=== PATIENT | female | born 1960 | race Caucasian/White ===

== ENCOUNTER 2019-02-03 12:15 | Inpatient (IN) | payer BC, SELFPAY ==
[2019-02-03] VITALS (8 sets, daily range): BP systolic 88–138; BP diastolic 51–78; PULSE 47–68; RESP 16–26; TEMP 36.5–37.2; O2SAT 93–100
[2019-02-03 12:47] LABS: Bilirubin Negative (Negative); Blood Trace-intact (Negative); Clarity Clear (Clear); Glucose Negative (Negative); Ketones Negative (Negative); Leukocyte Esterase Trace (Negative); Nitrite Negative (Negative); Urobilinogen 0.2 EU/dL (Up TO 0.2)
[2019-02-03 12:58] LABS: Epithelial Cells Rare HPF (Negative); Other Cells Few Renal (Negative); RBC 0-2 HPF (0-2)
[2019-02-03 12:59] LABS: Bacteria Rare HPF (Negative); C & S Indicated? Yes; Casts Negative LPF (Negative); Crystals Negative HPF (Negative); Mucus Negative (Negative)
[2019-02-03 12:59] LABS: Abs Immature Grans 0.02 k/cumm (0.0-0.09); Absolute Basophil Count 0.02 k/cumm (0.0-0.2); Absolute Lymphocyte Count 1.67 k/cumm (1.2-3.4); Absolute Monocyte Count 0.86 k/cumm (0.11-0.7); Absolute Neutrophil Count 7.27 k/cumm (1.2-6.7); Basophils % 0.2; HCT 43.5 % (36.0-46.0); HGB 14.9 g/dL (12.0-15.5); Immature Grans % 0.2; Lymphocytes % 16.8; Mean Corp. HGB Concentration 34.3 g/dL (32.0-36.0); Mean Corpuscular Volume 90.6 fL (80-95); Mean Platelet Volume 8.7 fL (8.0-11.0); Monocytes % 8.7; Neutrophils % 73.1; Platelet Count 274 x1000/uL (130-400); RBC Distribution Width 12.6 % (11.7-14.6); White Blood Cell Count 9.94 k/cumm (4.4-10.8)
[2019-02-03 13:09] LABS: ALT 51 U/L (14-59); AST 32 U/L (15-37); Alkaline Phosphatase 95 U/L (46-116); Anion Gap 8.1 mmol/L (3-11); BUN 18 mg/dL (7-18); CO2 29.9 mmol/L (21.0-32.0); CREATININE 0.75 mg/dL (0.55-1.02); Calcium 9.1 mg/dL (8.5-10.1); Chloride 104 mmol/L (98-107); Glucose 98 mg/dL (74-106); Magnesium 2.1 mg/dL (1.8-2.4); Sodium 142 mmol/L (136-145); Total Protein 7.7 g/dL (6.4-8.2)
[2019-02-03] MEDS: Ondansetron 4 MG/2 ML VIAL IVP ×2 (13:30→15:29)
[2019-02-03] MEDS: Omnipaque 350 MG/ML 100 ML BTL IJ (14:05)
--- NOTE | 2019-02-03 14:05 | DI.CT_ITS ---
EXAM: CT ABDOMEN AND PELVIS W CLINICAL HISTORY: RLQ PAIN X 2 DAYS TECHNIQUE: CT examination of the abdomen and pelvis was performed with a bolus infusion of 100 cc of Omnipaque 350. COMPARISON: No exams were available for comparison FINDINGS: Images obtained through the lung bases are unremarkable. There are a couple of tiny low-attenuation hepatic lesions too small to characterize. There is an approximately 3.5 cm in greatest diameter rig ht lobe hepatic lesion with some associated enhancement, pattern is nonspecific and while this may re present a hemangioma, other etiologies including neoplastic process are not excluded. Multiphasic he patic CT or hepatic MRI suggested for further evaluation. Spleen is unremarkable. Pancreas appears normal. Adrenals and kidneys appear normal. No urinary tr act calcification or obstruction. Abdominal aorta is of normal diameter and no major vascular abnorm ality is seen. No abdominal wall hernia is seen. No abdominal or pelvic adenopathy. Uterus is enlarged and contains rounded enhancing lesions consistent with uterine fibroid, the larges t measuring about 4 cm in diameter and the smaller about 1.7 cm in diameter. No free fluid identifie d in the cul-de-sac. Appendix is thick-walled and dilated with surrounding fat edema and a proximal appendicolith. Findin gs highly suggestive of acute appendicitis. No other focal bowel pathology identified. IMPRESSION: Findings consistent with acute appendicitis. Indeterminate right lobe hepatic lesion, additional evaluation with multiphasic hepatic CT or hepatic MRI recommended as described above.
--- NOTE | 2019-02-03 14:49 | ED.GENADUL_ITS ---
Discharge Plan Disposition Patient Disposition: [facility] INPATIENT Condition: Good Discharge Details Chief Complaint: Abd Prob Clinical Impression: Acute appendicitis Admit Date/Time: 02/03/19 16:47 Admit Provider: Rosemary Lewis Attending Provider: Rosemary Lewis Primary Care Provider: Sam Poole ED Provider: Komal Darnell Discharge Data Discharge Date/Time-TO BE ENTERED AT DEPARTURE: 02/03/19 15:50 Medical Decision Making Is a 58-year-old patient presenting for complaints of abdominal pain which began yesterday. Patient did have some difficulty sleeping initially due to persistence of pain into the evening but finally was able to fall asleep. Patient did report associated nausea which began yesterday, persists today. Patient reports mild anorexia today. Abdominal pain is constant and persistent which prompted her evaluation to the emergency room at this time. Patient denies associated bowel changes. Denies fevers or chills. Patient denies any recent upper respiratory symptoms. On exam patient has focal right lower quadrant tenderness with no associated peritoneal signs. No significant CVA tenderness. At this time labs as well as urinalysis ordered and CT of abdomen ordered. Patient declines pain medication at this time. IV placed. CT reveals acute appendicitis [id number] -spoke with Dr. Lewis regarding positive acute appendicitis. She will evaluate the patient. HPI General Date/Time Provider Initiated Documentation: 02/03/19 13:30 . HPI Narrative: This is a 58-year-old patient presenting to the emergency room complaints of abdominal pain. Patient reports onset of abdominal pain yesterday gradually. Patient does report nausea yesterday which persists today. Patient does report difficulty sleeping last night due to discomfort. She was eventually able to sleep. Patient presents to the emergency room as her pain did persist throughout the day today. She reports primarily right-sided abdominal pain. Nausea persists as well as mild anorexia. Minimal p.o. intake today. Patient denies associated bowel changes. Denies measured fevers or chills. No other concerns or complaints. Patient does report mild right-sided back pain. Denies urinary urgency, frequency or dysuria. Denies history of similar. No other flulike symptoms noted. Denies sore throat. Related Data Home Medications Medication Instructions Recorded Confirmed ascorbic acid (vitamin C) [Vitamin 1,000 mg PO DAILY 02/03/19 02/03/19 C] ibuprofen 600 mg PO Q6H PRN #90 tab 02/03/19 magnesium See Rx Instructions .ROUTE .COMPLEX 02/03/19 02/03/19 omega 4-hds-ljh-fish oil [Fish Oil] 1 cap PO DAILY 02/03/19 02/03/19 tramadol 50 mg PO Q4H PRN #14 tab 02/03/19 Previous Rx's Medication Instructions Recorded ibuprofen 600 mg PO Q6H PRN #90 tab 02/03/19 tramadol 50 mg PO Q4H PRN #14 tab 02/03/19 Allergies Allergy/AdvReac Type Severity Reaction Status Date / Time diazepam [From Valium] Allergy Intermediate Skin Rash Unverified 02/03/19 12:30 General Stated Complaint: Abd Prob JULISSA: 3 Review of Systems All systems reviewed & are unremarkable except as noted in HPI and below Constitutional Constitutional: Denies chills, Denies fatigue, Denies fever(s), Denies headache(s) and Denies malaise ENT Ears, Nose, Mouth, and Throat: Denies otalgia, Denies headache(s), Denies nasal congestion and Denies sore throat Gastrointestinal Gastrointestinal: Reports abdominal pain, Denies diarrhea, Reports nausea and Denies vomiting Genitourinary Genitourinary: Denies dysuria Neurologic Neurologic: Denies headache(s) Endocrine Endocrine: Denies fatigue PFSH Medical History Acute appendicitis (Acute) Eroded bladder suspension mesh (Acute) PONV (postoperative nausea and vomiting) (Acute) Surgical History Knee joint replacement status (Acute) Exam Narrative Exam Narrative: CONST: Healthy appearing patient, in no acute distress. Well hydrated. Alert and alert. HENMT: Head nomocephalic, normal to inspection. Atraumatic. Hearing grossly normal. TMs appear normal bilaterally. No pharyngeal erythema. EYES: General normal appearance. Alignment normal. Eyelids normal. Conjunctiva normal. NECK: Normal visual inspection. FROM. Trachea midline. No Midline tenderness. CHEST: Normal insepection of the chest. RESP: Normal respiratory effort. Speaking full sentences. No cough. No audible wheezing. No retractions. CARDIO: No JVD. No murmurs. Regular rate and rhythm Back: No CVA tenderness bilaterally GI: Bowel sounds are present in all 4 quadrants. Abdomen is soft. Focal right lower quadrant tenderness with palpation. No peritoneal signs, rebound or guarding. PSYCH: Normal affect. Cooperative. Course Vital Signs Vital signs: Vital Signs Temperature 36.5 C 02/03/19 12:28 Pulse 68 02/03/19 12:28 Respiratory Rate 16 02/03/19 12:28 Blood Pressure 138/78 02/03/19 12:28 Pulse Oximetry 100 02/03/19 12:28 Temperature 36.5 C 02/03/19 12:28 Temperature Source Skin 02/03/19 12:28 Pulse 68 02/03/19 12:28 Respiratory Rate 16 02/03/19 12:28 Blood Pressure 138/78 02/03/19 12:28 Pulse Oximetry 100 02/03/19 12:28 Oxygen Delivery Method Room Air 02/03/19 12:28 Oxygen Flow Rate 0 02/03/19 12:28 Pain Level 7 02/03/19 12:28 Lab/Test Results Lab/Test Results: 02/03/19 12:30 Urine - Reflex from Ua Urine Culture - Pending Laboratory Tests Range/Units 02/03/19 02/03/19 02/03/19 12:27 12:27 12:30 WBC (4.4-10.8) k/cumm 9.94 RBC (4.00-5.20) m/cumm 4.80 Hgb (12.0-15.5) g/dL 14.9 Hct (36.0-46.0) % 43.5 MCV (80-95) fL 90.6 MCH (27.0-33.0) pg 31.0 MCHC (32.0-36.0) g/dL 34.3 RDW (11.7-14.6) % 12.6 Plt Count (130-400) x1000/uL 274 MPV (8.0-11.0) fL 8.7 Immature Gran % 0.2 Neutrophils % 73.1 Lymphocytes % 16.8 Monocytes % 8.7 Eosinophils % 1.0 Basophils % 0.2 Absolute Neutrophils (1.2-6.7) k/cumm 7.27 H Absolute Lymphocytes (1.2-3.4) k/cumm 1.67 Absolute Monocytes (0.11-0.7) k/cumm 0.86 H Absolute Eosinophils (0.0-0.7) k/cumm 0.10 Absolute Basophils (0.0-0.2) k/cumm 0.02 Sodium (136-145) mmol/L 142 Potassium (3.5-5.1) mmol/L 4.0 Chloride (98-107) mmol/L 104 Carbon Dioxide (21.0-32.0) mmol/L 29.9 Anion Gap (3-11) mmol/L 8.1 BUN (7-18) mg/dL 18 Creatinine (0.55-1.02) mg/dL 0.75 Estimated GFR/1.73 m2 (mL/min/1.73m2) >= 60.00 Glucose (74-106) mg/dL 98 Calcium (8.5-10.1) mg/dL 9.1 Magnesium (1.8-2.4) mg/dL 2.1 Total Bilirubin (0.2-1.0) mg/dL 1.0 AST (15-37) U/L 32 ALT (14-59) U/L 51 Alkaline Phosphatase (46-116) U/L 95 Total Protein (6.4-8.2) g/dL 7.7 Albumin (3.4-5.0) g/dL 4.0 Urine Color (Yellow) Yellow Urine Clarity (Clear) Clear Urine pH (5-8) 7.0 Ur Specific [place] (1.005-1.025) 1.010 Urine Protein (Negative) mg/dL Negative Urine Ketones (Negative) mg/dL Negative Urine Blood (Negative) Trace-intact H Urine Nitrite (Negative) Negative Urine Bilirubin (Negative) Negative Urine Urobilinogen (Up TO 0.2) EU/dL 0.2 Ur Leukocyte Esterase (Negative) Trace H Urine RBC (0-2) HPF 0-2 Urine WBC (0-5) HPF 3-5 Ur Epithelial Cells (Negative) HPF Rare Urine Crystals (Negative) HPF Negative Urine Bacteria (Negative) HPF Rare Urine Casts (Negative) LPF Negative Urine Mucus (Negative) Negative Urine Other (Negative) Few renal Ur Culture Indicated? Yes Urine Glucose (Negative) mg/dL Negative
--- NOTE | 2019-02-03 14:51 | W.PM.HP.N ---
Date of service: 02/03/19 Time of Service: 14:52 Assessment and Plan Assessment and plan (1) Acute appendicitis: Status: Acute Assessment and plan: Informed consent is obtained for the procedural (explained in simple layman's terms that the pt and/or family could understand) explaining risks vs benefits and alternatives to the procedure and consequences if we do not do the procedure. Risks include but are not limited to:bleeding,infections, pneumonia, blood clots/DVT/PE, anesthesia(aspiration, damage to teeth/airway/OR/CVA//prolonged mechanical ventilation/PTX/IV infections), damage to bowel, bladder,blood vessels, ureters, bile ducts. Damage to solid organs requiring removal. Leakage from anastomosis requiring colostomy/ Wound infections requirng further surgery.Scarring and disfigurement. Subsequent bowel obstructions from scar tissue. Possible open procedure if minimally invasive procedure is being attempted laprascopic appendectomy possible liver bx if the lesion is vision and of questionable nature will see how pt does postOp poss d/c home tonight vs in am (2) PONV (postoperative nausea and vomiting): Status: Acute History of Present Illness Consults Consult date: 02/03/19 Narrative: Pt started having vague abdominal pain yesterday. denies any trauma/travel/unusual foods/activities. She has no hx of chronic GI problems. She moved her bowels x2 today and nl for her. no blood or diarrhea. She has persistent RLQ pain and nausea. She is not one to vomit. feels clammy. no appetite. She has had mult knee scopes and surgies- has PONV. No CAD/HTN/DM non smoker Review of Systems All systems reviewed & are unremarkable except as noted in HPI and below PFSH Medical History Acute appendicitis (Acute) Eroded bladder suspension mesh (Acute) PONV (postoperative nausea and vomiting) (Acute) Surgical History Knee joint replacement status (Acute) Meds Home Medications and Allergies Home Medications Medication Instructions Recorded Confirmed Type ascorbic acid (vitamin C) [Vitamin 1,000 mg PO DAILY 02/03/19 02/03/19 History C] magnesium See Rx Instructions .ROUTE .COMPLEX 02/03/19 02/03/19 History omega 9-ldr-xke-fish oil [Fish Oil] 1 cap PO DAILY 02/03/19 02/03/19 History Allergies Allergy/AdvReac Type Severity Reaction Status Date / Time diazepam [From Valium] Allergy Intermediate Skin Rash Unverified 02/03/19 12:30 Exam Const General: cooperative, healthy appearing, comfortable, no acute distress, well developed and well groomed Nutritional Appearance: average body habitus and well nourished Orientation: alert, awake and oriented x3 HENMT Head: normal to inspection, normocephalic and atraumatic Ears: hearing grossly normal bilaterally and external ears normal General nose exam: external nose normal Face and sinus: normal facial exam and sinuses nontender Mouth: oral mucosae normal, lip normal, tongue normal and moist mucous membranes Teeth and gingiva: dentition normal Eyes General: appearance normal, both eyes and all related structures Conjunctivae: conjunctivae normal Sclera: sclerae normal Pupils: PERRL Neck Neck: normal visual inspection and full ROM Chest Chest: normal inspection of the chest Resp Effort & Inspection: normal respiratory effort, able to speak in complete sentences, no cough, no nasal flaring, not tachypneic and no use of accessory muscles Auscultation: clear to auscultation bilaterally, no rales, no rhonchi and no wheezes Cardio Jugular venous pressure: no JVD Rate: regular rate Rhythm: regular rhythm GI Inspection: normal to inspection, no edema, non-distended and other (no hernias) Palpation: soft, guarding, no masses, tender at McBurney's point and with rebound tenderness; obturator sign negative and Rovsing's sign negative and No ascites Percussion: normal to percussion Auscultation: normal bowel sounds and hypoactive bowel sounds Skin General skin exam: no rashes or lesions noted Trauma: no lacerations or abrasions Neuro General: alert, oriented x3, oriented, gait normal, moves all extremities, no focal motor deficits and CN's II-XI intact bilaterally Cognition: normal cognition Speech: speech normal Gait: normal gait Motor: muscle tone normal throughout Extrem General: normal to inspection, full ROM and no clubbing, cyanosis or edema Psych Appearance: grossly normal and well kempt Mental Status: mental status grossly normal Speech and Movement: speech and movement normal Affect: normal affect Results Labs Result diagrams: 02/03/19 12:27 02/03/19 12:27 Labs: Laboratory Results - last 24 hr 02/03/19 02/03/19 02/03/19 12:27 12:27 12:30 WBC 9.94 RBC 4.80 Hgb 14.9 Hct 43.5 MCV 90.6 MCH 31.0 MCHC 34.3 RDW 12.6 Plt Count 274 MPV 8.7 Immature Gran % 0.2 Neutrophils % 73.1 Lymphocytes % 16.8 Monocytes % 8.7 Eosinophils % 1.0 Basophils % 0.2 Absolute Neutrophils 7.27 H Absolute Lymphocytes 1.67 Absolute Monocytes 0.86 H Absolute Eosinophils 0.10 Absolute Basophils 0.02 Sodium 142 Potassium 4.0 Chloride 104 Carbon Dioxide 29.9 Anion Gap 8.1 BUN 18 Creatinine 0.75 Estimated GFR/1.73 m2 >= 60.00 Glucose 98 Calcium 9.1 Magnesium 2.1 Total Bilirubin 1.0 AST 32 ALT 51 Alkaline Phosphatase 95 Total Protein 7.7 Albumin 4.0 Urine Color Yellow Urine Clarity Clear Urine pH 7.0 Ur Specific [place] 1.010 Urine Protein Negative Urine Ketones Negative Urine Blood Trace-intact H Urine Nitrite Negative Urine Bilirubin Negative Urine Urobilinogen 0.2 Ur Leukocyte Esterase Trace H Urine RBC 0-2 Urine WBC 3-5 Ur Epithelial Cells Rare Urine Crystals Negative Urine Bacteria Rare Urine Casts Negative Urine Mucus Negative Urine Other Few renal Ur Culture Indicated? Yes Urine Glucose Negative Last Vital Signs Temp 36.5 C 02/03/19 12:28 Pulse 68 02/03/19 12:28 Resp 16 02/03/19 12:28 BP 138/78 02/03/19 12:28 Pulse Ox 100 02/03/19 12:28
[2019-02-03 15:21] LABS: Prothrombin Time 9.8 sec (9.3-11.0)
[2019-02-03] MEDS: Lactated Ringers 1,000 ML 125 ML IV ×2 (15:27→16:28)
[2019-02-03] MEDS: PIPERACILLIN/TAZO 3.375 GM in Normal Saline 50 ML IVPB (15:28)
--- NOTE | 2019-02-03 16:37 | APP_PTH ---
PATIENT: Sabi Huff LOC: U#:[id number] AGE/SX: 58/F ROOM: [id number] RE02/03/[address]: Rosemary Lewis : 1960 BED: B DIS: 02/03/2019 SPEC #: [id number] RECD: 02/03/19 17:47 STATUS: SOUChad REQ #: [id number] [place]: 02/03/19 16:[address]: Rosemary Lewis DEPT: Surgical Specimen RECD BY: Kateryna Mcconnell ENTERED: 02/03/19 17:47 SP TYPE: Appendix OTHR DR: Sam Poole Tissues: 1 - APPENDIX NOT INCIDENTAL Procedures: GROSS AND MICRO LEVEL 3 Comments: [id number]
--- NOTE | 2019-02-03 16:50 | W.PM.OP ---
Date of service: 02/03/19 Time of Service: 16:50 Operative Note Operative Note DATE OF PROCEDURE: 02/03/19 PRE-OP DIAGNOSIS: acute appy POST-OP DIAGNOSIS: same PROCEDURE: lap appy SURGEON: Melinda Martinez VIDEO SURVEILLANCE TECHNICIAN: Casper Jansen ANESTHESIA: GETA ESTIMATED BLOOD LOSS: 5 PATHOLOGY: other COMPLICATIONS: None Patient was transported to: PACU Patient's condition: stable Procedure Description: COMPLICATIONS: The patient tolerated the procedure well without complications. INDICATIONS: The patient has signs and symptoms compatible with acute appendicitis and is brought to the OR for laparoscopic appendectomy, possible open procedure. Informed consent is obtained for the procedural (explained in simple layman's terms that the pt and/or family could understand) explaining risks vs benefits and alternatives to the procedure and consequences if we do not do the procedure. Risks include but are not limited to:bleeding,infections, pneumonia, blood clots/DVT/PE, anesthesia(aspiration, damage to teeth/airway/VT/CVA//prolonged mechanical ventilation/PTX/IV infections), damage to bowel, bladder,blood vessels, ureters. Damage to solid organs requiring removal. Infertility. Leakage from anastomosis requiring colostomy. Wound infections requirng further surgery. Scarring and disfigurement. Subsequent bowel obstructions from scar tissue. Possible open procedure if minimaly invsive procedure is being attempted. Abscess and stump appendicitis as well as others. DESCRIPTION OF PROCEDURE: The patient was brought to the operating room suite and placed in supine position. Anesthesia was administered per the Department of Anesthesia. A Zhu catheter and OG tube are placed. The patient was prepped and draped in the usual sterile fashion using ChloraPrep scrub solution. Pause for the cause was done. 30 mL of 1% buffered was used for local anesthetization. A stab incision was made in the umbilicus and the Veress was inserted. Drop test was positive and insufflation was begun. When 15 mm of pressure was noted on the monitor, the Veress was removed, a #5 port inserted. Camera inserted through the port shows no damage to underlying structures. Bowel, liver and stomach that are visualized are normal in appearance. Pelvic organs are not visualized. The appendix is inflamed, erythematous,enlarged, & distened, but does not appear to have been ruptured. There is no purulent drainage in the pelvis. It is not adhered to any adjacent structures. A 12 mm port was then placed in the suprapubic position under direct visualization following creation of a local field block as well as a second 5 mm port in the LLQ. The appendix is elevated and a rent dissected into the mesentery. The base of the appendix is healthy and will hold saul. A Endo-CINDY stapler is placed across the base of the appendix and fired and 2nd stapler placed across the mesentery and fired. The appendix is placed in a bag and brought out. There is no bleeding or enteric leakage from the staple lines. The pt does not require a drain. The abdomen was copiously irrigated with a liter of saline. All saline is evacuated. The scope and ports are removed. Pneumoperitoneum is evacuated. The fascia under the 12 mm port is closed with 0 Vicryl. There was no bleeding from the port sites as when they removed and the pneumoperitoneum evacuated. The wounds were copiously irrigated and closed in 2 layers with 4-0 Monocryl. Sterile tape and sterile dressings are applied. The patient tolerated the procedure without complication, transferred to the recovery room in stable condition. Family was apprised of patient condition. The patient can be discharged home later today. MELINDA MARTINEZ, DO
--- NOTE | 2019-02-03 17:20 | W.PM.DS.N ---
Date of service: 02/03/19 Time of Service: 17:20 DS: Diagnosis Discharge Diagnosis (1) Acute appendicitis: Status: Acute (2) PONV (postoperative nausea and vomiting): Status: Acute Discharge Plan Disposition Patient Disposition: HOME Condition: Good Discharge Details Chief Complaint: Abd Prob Clinical Impression: Acute appendicitis Reason For Visit: APPENDICITIS Attending Provider: Rosemary Lewis Primary Care Provider: Sam Poole ED Provider: Komal Darnell Home Meds and New Rx's Prescriptions: New tramadol 50 mg tablet 50 mg PO Q4H PRN (Reason: pain) Qty: 14 RF: 0 ibuprofen 600 mg tablet 600 mg PO Q6H PRN (Reason: pain) Qty: 90 RF: 2 Continued omega 4-jgp-vfv-fish oil [Fish Oil] 1,000 mg (120 mg-180 mg) Capsule 1 cap PO DAILY RF: 0 ascorbic acid (vitamin C) [Vitamin C] 1,000 mg Tablet 1,000 mg PO DAILY RF: 0 magnesium 250 mg Tablet See Rx Instructions .ROUTE .COMPLEX RF: 0 Discharge Instructions Additional Instructions: Keep an ice bag on the incision. 20 minutes on and 20 minutes off. Ice keeps the swelling down and swelling causes pain. Make sure you wrap the ice pack in a towel and don't apply directly to the skin. -No driving x 72hrs or of you are taking narcotic pain medications. -If you have saul or sutures in place, they will be removed at your clinic appointment in 7-10 days. -Follow-up with Dr. Lewis in 1 week. -soft diet: No beef/pork raw vegetables x1 -week. Cooked vegetables are fine -no straining to move bowels -pain meds are very constipating: if you do not move your bowels daily take a dose of OTC milk of magnesia -It is ok to shower, after the first 24 hrs. No bathe, soaking, swimming or hot tubs -Keep wound clean and dry. Wash incision with soap and water daily. Pat dry, don't rub. -You may find that your appetite is smaller. Eat 3-6 small meals throughout the day. It is important to drink lots of water after surgery, 6-10 glasses a day. -If you were given an incentive spirometry (\breathing intelligence operations), continue to do this 10x/hour while awake. -We do want you up walking, at least 5-6 times per day. This is very important to prevent pneumonia and blood clots. You can climb stairs, take them slowly. -No lifting over 5 pounds. This is very important to avoid developing a hernia in your incision. -You may find that you are very tired after surgery- this is normal. -please do not smoke for a minimum of 72 hours after surgery. Activity:: see above Shower/Bathe:: 24 hours Diet:: As Tolerated Discharge Orders Discharge Orders: Discharge Order (Routine); Ordered 02/03/19 Ordered By: Rosemary Lewis DS: Summary Status at Discharge Functional status at discharge: independent ambulation Overall status at discharge: patient is back to baseline Mental Status: mental status grossly normal Speech and Movement: speech and movement normal Mood: congruent mood Affect: normal affect Exam Psych Mental Status: mental status grossly normal Speech and Movement: speech and movement normal Mood: congruent mood Affect: normal affect DS: Data Vitals/I&O Vitals and I&O: Vital Signs Temperature 37.2 C 02/03/19 17:05 Temperature Source Skin 02/03/19 12:28 Pulse 47 L 02/03/19 17:05 Respiratory Rate 26 H 02/03/19 17:05 Blood Pressure 91/51 L 02/03/19 17:05 Pulse Oximetry 95 02/03/19 17:05 Oxygen Delivery Method Nasal Cannula 02/03/19 17:05 Oxygen Flow Rate 2 02/03/19 17:05 Pain Level 0 02/03/19 17:05 Intake & Output 02/02/19 02/03/19 02/03/19 23:59 11:59 23:59 Intake Total 181 / 1810 Output Total 200 / 200 Balance 1610 / 1610 Weight 68.039 kg Intake: IV 1809 Output: Urine 200 / 200 Other: Urine Color Yellow Urine Appearance Clear Emesis Description None Data Completed and Pending Labs on day of discharge: Labs from last 24 hours 02/03/19 02/03/19 02/03/19 15:10 12:30 12:27 WBC RBC Hgb Hct MCV MCH MCHC RDW Plt Count MPV Immature Gran % Neutrophils % Lymphocytes % Monocytes % Eosinophils % Basophils % Absolute Neutrophils Absolute Lymphocytes Absolute Monocytes Absolute Eosinophils Absolute Basophils PT 9.8 INR 1.0 APTT 25.0 Sodium Potassium Chloride Carbon Dioxide Anion Gap BUN Creatinine Estimated GFR/1.73 m2 Glucose Calcium Magnesium Total Bilirubin AST ALT Alkaline Phosphatase Total Protein Albumin Urine Color Yellow Urine Clarity Clear Urine pH 7.0 Ur Specific [place] 1.010 Urine Protein Negative Urine Ketones Negative Urine Blood Trace-intact H Urine Nitrite Negative Urine Bilirubin Negative Urine Urobilinogen 0.2 Ur Leukocyte Esterase Trace H Urine RBC 0-2 Urine WBC 3-5 Ur Epithelial Cells Rare Urine Crystals Negative Urine Bacteria Rare Urine Casts Negative Urine Mucus Negative Urine Other Few renal Ur Culture Indicated? Yes Urine Glucose Negative Patient ABO/Rh O Positive Antibody Screen Negative 02/03/19 02/03/19 02/03/19 12: 12: 12:27 WBC 9.94 RBC 4.80 Hgb 14.9 Hct 43.5 MCV 90.6 MCH 31.0 MCHC 34.3 RDW 12.6 Plt Count 274 MPV 8.7 Immature Gran % 0.2 Neutrophils % 73.1 Lymphocytes % 16.8 Monocytes % 8.7 Eosinophils % 1.0 Basophils % 0.2 Absolute Neutrophils 7.27 H Absolute Lymphocytes 1.67 Absolute Monocytes 0.86 H Absolute Eosinophils 0.10 Absolute Basophils 0.02 PT Cancelled INR Cancelled APTT Sodium 142 Potassium 4.0 Chloride 104 Carbon Dioxide 29.9 Anion Gap 8.1 BUN 18 Creatinine 0.75 Estimated GFR/1.73 m2 >= 60.00 Glucose 98 Calcium 9.1 Magnesium 2.1 Total Bilirubin 1.0 AST 32 ALT 51 Alkaline Phosphatase 95 Total Protein 7.7 Albumin 4.0 Urine Color Urine Clarity Urine pH Ur Specific [place] Urine Protein Urine Ketones Urine Blood Urine Nitrite Urine Bilirubin Urine Urobilinogen Ur Leukocyte Esterase Urine RBC Urine WBC Ur Epithelial Cells Urine Crystals Urine Bacteria Urine Casts Urine Mucus Urine Other Ur Culture Indicated? Urine Glucose Patient ABO/Rh Antibody Screen 02/03/19 12:30 Urine - Reflex from Urine Culture - Pending Preliminary micro results at discharge 02/03/19 12:30 Urine Culture - Pending Urine - Reflex from [facility] Medical History Acute appendicitis (Acute) Eroded bladder suspension mesh (Acute) PONV (postoperative nausea and vomiting) (Acute) Surgical History Knee joint replacement status (Acute)
--- NOTE | 2019-02-03 17:29 | W.PM.PROGNOT ---
Date of Service Date of service: 02/03/19 Time of Service: 17:29 Assessment and Plan Assessment and plan (1) Acute appendicitis: Status: Acute Assessment and plan: doing well see how she wakes up can go home or spent night and I will d/c her in am Subjective Subjective Interval history since last seen: pt is awake. still slt groggy from anethesia. denies pain or nausea. no cp or sob. Exam Const General: cooperative, healthy appearing, comfortable, no acute distress, well developed and well groomed Nutritional Appearance: average body habitus and well nourished Orientation: awake [facility] Head: normal to inspection, normocephalic and atraumatic Ears: hearing grossly normal bilaterally and external ears normal General nose exam: external nose normal Face and sinus: normal facial exam and sinuses nontender Mouth: oral mucosae normal, lip normal, tongue normal and moist mucous membranes Teeth and gingiva: dentition normal Eyes General: appearance normal, both eyes and all related structures Conjunctivae: conjunctivae normal Sclera: sclerae normal Pupils: PERRL Neck Neck: normal visual inspection and full ROM Chest Chest: normal inspection of the chest Resp Effort & Inspection: normal respiratory effort, no cough, no nasal flaring, not tachypneic and no use of accessory muscles Auscultation: clear to auscultation bilaterally, no rales, no rhonchi and no wheezes Cardio Jugular venous pressure: no JVD Rate: regular rate Rhythm: regular rhythm GI Inspection: normal to inspection, no edema and non-distended Palpation: soft, no masses, nontender and No ascites Auscultation: normal bowel sounds Other: dressings c/d/i. Skin General skin exam: no rashes or lesions noted Trauma: no lacerations or abrasions Neuro General: alert, oriented x3, oriented, gait normal, moves all extremities, no focal motor deficits and CN's II-XI intact bilaterally Extrem General: normal to inspection Psych Appearance: grossly normal and well kempt Mental Status: mental status grossly normal Speech and Movement: speech and movement normal Affect: normal affect Objective Objective Clinical Data: Abnormal lab results 02/03/19 02/03/19 Range/Units 12:27 12:30 Absolute Neutrophils 7.27 H (1.2-6.7) k/cumm Absolute Monocytes 0.86 H (0.11-0.7) k/cumm Urine Blood Trace-intact H (Negative) Ur Leukocyte Esterase Trace H (Negative) Vital Signs Temperature 36.5 C 02/03/19 17:20 Temperature Source Skin 02/03/19 12:28 Pulse 48 L 02/03/19 17:20 Respiratory Rate 24 02/03/19 17:20 Blood Pressure 91/52 L 02/03/19 17:20 Pulse Oximetry 95 02/03/19 17:20 Respiratory End-tidal CO2 35 02/03/19 17:20 Oxygen Delivery Method Nasal Cannula 02/03/19 17:20 Oxygen Flow Rate 2 02/03/19 17:20 Pain Level 0 02/03/19 17:20 Intake & Output 02/02/19 02/03/19 02/03/19 23:59 11:59 23:59 Intake Total 181 / 1809 Output Total 200 / 200 Balance 161 / 1610 Weight 68.039 kg Intake: IV 1809 Output: Urine 200 / 200 Other: Urine Color Yellow Urine Appearance Clear Emesis Description None Laboratory Results WBC 9.94 k/cumm (4.4-10.8) 02/03/19 12:27 RBC 4.80 m/cumm (4.00-5.20) 02/03/19 12:27 Hgb 14.9 g/dL (12.0-15.5) 02/03/19 12:27 Hct 43.5 % (36.0-46.0) 02/03/19 12:27 MCV 90.6 fL (80-95) 02/03/19 12:27 MCH 31.0 pg (27.0-33.0) 02/03/19 12:27 MCHC 34.3 g/dL (32.0-36.0) 02/03/19 12:27 RDW 12.6 % (11.7-14.6) 02/03/19 12:27 Plt Count 274 x1000/uL (130-400) 02/03/19 12:27 MPV 8.7 fL (8.0-11.0) 02/03/19 12:27 Immature Gran % 0.2 02/03/19 12:27 Neutrophils % 73.1 02/03/19 12:27 Lymphocytes % 16.8 02/03/19 12:27 Monocytes % 8.7 02/03/19 12:27 Eosinophils % 1.0 02/03/19 12:27 Basophils % 0.2 02/03/19 12:27 Absolute Neutrophils 7.27 k/cumm (1.2-6.7) H 02/03/19 12:27 Absolute Lymphocytes 1.67 k/cumm (1.2-3.4) 02/03/19 12:27 Absolute Monocytes 0.86 k/cumm (0.11-0.7) H 02/03/19 12:27 Absolute Eosinophils 0.10 k/cumm (0.0-0.7) 02/03/19 12:27 Absolute Basophils 0.02 k/cumm (0.0-0.2) 02/03/19 12:27 PT 9.8 sec (9.3-11.0) 02/03/19 12:27 PT Cancelled 02/03/19 12:27 INR 1.0 (0.9-1.1) 02/03/19 12:27 INR Cancelled 02/03/19 12:27 APTT 25.0 sec (21.0-31.4) 02/03/19 12:27 Sodium 142 mmol/L (136-145) 02/03/19 12:27 Potassium 4.0 mmol/L (3.5-5.1) 02/03/19 12:27 Chloride 104 mmol/L (98-107) 02/03/19 12:27 Carbon Dioxide 29.9 mmol/L (21.0-32.0) 02/03/19 12:27 Anion Gap 8.1 mmol/L (3-11) 02/03/19 12:27 BUN 18 mg/dL (7-18) 02/03/19 12:27 Creatinine 0.75 mg/dL (0.55-1.02) 02/03/19 12:27 Estimated GFR/1.73 m2 >= 60.00 (mL/min/1.73m2) 02/03/19 12:27 Glucose 98 mg/dL (74-106) 02/03/19 12:27 Calcium 9.1 mg/dL (8.5-10.1) 02/03/19 12:27 Magnesium 2.1 mg/dL (1.8-2.4) 02/03/19 12:27 Total Bilirubin 1.0 mg/dL (0.2-1.0) 02/03/19 12: AST 32 U/L (15-37) 02/03/19 12: ALT 51 U/L (14-59) 02/03/19 12: Alkaline Phosphatase 95 U/L (46-116) 02/03/19 12: Total Protein 7.7 g/dL (6.4-8.2) 02/03/19 12:27 Albumin 4.0 g/dL (3.4-5.0) 02/03/19 12:27 Urine Color Yellow (Yellow) 02/03/19 12:30 Urine Clarity Clear (Clear) 02/03/19 12:30 Urine pH 7.0 (5-8) 02/03/19 12:30 Ur Specific [place] 1.010 (1.005-1.025) 02/03/19 12:30 Urine Protein Negative mg/dL (Negative) 02/03/19 12:30 Urine Ketones Negative mg/dL (Negative) 02/03/19 12:30 Urine Blood Trace-intact (Negative) H 02/03/19 12:30 Urine Nitrite Negative (Negative) 02/03/19 12:30 Urine Bilirubin Negative (Negative) 02/03/19 12:30 Urine Urobilinogen 0.2 EU/dL (Up TO 0.2) 02/03/19 12:30 Ur Leukocyte Esterase Trace (Negative) H 02/03/19 12:30 Urine RBC 0-2 HPF (0-2) 02/03/19 12:30 Urine WBC 3-5 HPF (0-5) 02/03/19 12:30 Ur Epithelial Cells Rare HPF (Negative) 02/03/19 12:30 Urine Crystals Negative HPF (Negative) 02/03/19 12:30 Urine Bacteria Rare HPF (Negative) 02/03/19 12:30 Urine Casts Negative LPF (Negative) 02/03/19 12:30 Urine Mucus Negative (Negative) 02/03/19 12:30 Urine Other Few renal (Negative) 02/03/19 12:30 Ur Culture Indicated? Yes 02/03/19 12:30 Urine Glucose Negative mg/dL (Negative) 02/03/19 12:30 Patient ABO/Rh O Positive 02/03/19 15:10 Antibody Screen Negative 02/03/19 15:10
[2019-02-03] MEDS: traMADol 50 MG TAB PO (18:01)
[2019-02-03] MEDS: MORPHine 2 MG/ML SYR IVP (18:20)
--- NOTE | 2019-02-03 18:38 | NUR.NOTE ---
At 1730 pt in room 229 got to the medsurg unit from OR. Pts VVS, lungs clear, HR regular, hypoactive BS, Trochar sites x3 CDI. Pt had rodriguez in during procedure but has not voided since rodriguez removal. LR at 125cc/hr in Right AV. Will continue to monitor and assess pt. Nursing Note:
== END 2019-02-03 20:19 | disposition home or self-care (01) | DRG 343 ==
LOC: ER 14:49 → SUR 15:43 → MS 17:39
PROVIDERS: Admitting Provider Surgery; Emergency Provider Physician Assistant; PCP Internal Medicine; Visit Provider Surgery
PROC: 0DTJ4ZZ Resection of Appendix, Percutaneous Endoscopic Approach (ICD-10-PCS; CPT 44970; principal; 2019-02-03 16:00)
DX: K35.890 Other acute appendicitis without perforation or gangrene (principal); K91.0 Vomiting following gastrointestinal surgery; Y83.6 Removal of other organ (partial) (total) as the cause of abnormal reaction of the patient, or of later complication, without mention of misadventure at the time of the procedure
CPT/HCPCS: 44970; 36415; 36416; 51702; 80053; 82962; 86850; 86900; 86901; 93005; 96361; 96365; 96375; 96376; 99222; 99238; 99285; NC; 74177; 81003; 81015; 83735; 85025; 85610; 85730; 87086; 88304; 93010; J0131; J1100; J1885; J2270; J2405; J2543; J3490

== ENCOUNTER 2020-06-25 18:36 | Outpatient (REF) | payer BC, SELFPAY ==
--- NOTE | 2020-06-25 15:30 | PAPFT_PTH ---
PATIENT: Sabi Huff LOC: [facility]#:[id number] AGE/SX: 59/F ROOM: RE06/25/[address]: Lucia Byrd : 1960 BED: DIS: 06/25/2020 SPEC #: [id number] RECD: 06/25/20 18:38 STATUS: KARON REQ #: [id number] [place]: 06/25/20 15:[address]: Lucia Byrd DEPT: [facility] Cytology RECD BY: Kateryna Mcconnell ENTERED: 06/25/20 18:38 SP TYPE: PAPFT OTHR DR: Sam Poole Tissues: 1 - CX/ENDOCX FOR PAP SMEARS Procedures: PAP THIN PREP/[facility] Screening HPV DNA PROBE Comments: [id number]
== END 2020-06-25 18:37 | disposition home or self-care (01) ==
LOC: NCHCN 18:36
PROVIDERS: PCP Internal Medicine; Visit Provider Nurse Practitioner Family
DX: Z12.4 Encounter for screening for malignant neoplasm of cervix (principal); Z01.419 Encounter for gynecological examination (general) (routine) without abnormal findings; Z78.0 Asymptomatic menopausal state; Z11.51 Encounter for screening for human papillomavirus (HPV)
CPT/HCPCS: 88142; 87624

== ENCOUNTER 2020-07-15 17:47 | Outpatient (REF) | payer BC, SELFPAY ==
[2020-07-15 15:28] LABS: Calculated LDL 197 mg/dL (<100); Cholesterol 278 mg/dL (<200); Glucose 103 mg/dL (74-106); HDL Cholesterol 56 mg/dL (40-60); Triglyceride 129 mg/dL (<150)
== END 2020-07-15 17:48 | disposition home or self-care (01) ==
LOC: NCHCN 17:47
PROVIDERS: PCP Internal Medicine; Visit Provider Nurse Practitioner Family
DX: Z00.00 Encounter for general adult medical examination without abnormal findings (principal); Z13.1 Encounter for screening for diabetes mellitus; Z13.220 Encounter for screening for lipoid disorders
CPT/HCPCS: 80061; 82947

== ENCOUNTER 2021-01-13 09:16 | Outpatient (REF) | payer BC, SELFPAY ==
[2021-01-13 19:51] LABS: ALT 35 U/L (14-59); AST 17 U/L (15-37); Albumin 4.1 g/dL (3.4-5.0); Alkaline Phosphatase 87 U/L (46-116); Anion Gap 8.7 mmol/L (3-11); BUN 20 mg/dL (7-18); Bilirubin, Total 1.1 mg/dL (0.2-1.0); CO2 28.3 mmol/L (21.0-32.0); CREATININE 0.7 mg/dL (0.55-1.02); Calculated LDL 99 mg/dL (<100); Chloride 104 mmol/L (98-107); Cholesterol 176 mg/dL (<200); Glucose 99 mg/dL (74-106); HDL Cholesterol 55 mg/dL (40-60); Potassium 4.1 mmol/L (3.5-5.1); Sodium 141 mmol/L (136-145); Total Protein 7.3 g/dL (6.4-8.2); Triglyceride 112 mg/dL (<150)
== END 2021-01-13 09:17 | disposition home or self-care (01) ==
LOC: NCHCN 09:16
PROVIDERS: PCP Internal Medicine; Visit Provider Nurse Practitioner Family
DX: E78.5 Hyperlipidemia, unspecified (principal)
CPT/HCPCS: 80053; 80061

== ENCOUNTER 2021-01-28 00:48 | Outpatient (CLI) | payer BC, SELFPAY ==
--- NOTE | 2021-01-28 | DI.MRI_ITS ---
Exam(s) MR ABDOMEN WO/W EXAM: MR ABDOMEN WO/W CLINICAL HISTORY: LIVER LESION, K76.9 TECHNIQUE: Multiplanar multisequence MRA of the Abdomen was performed. CONTRAST MATERIAL: IV Contrast: 14 mL of Dotarem contrast administered. COMPARISON: CT CT ABDOMEN PELVIS W from 02/03/[address] ABDOMEN PELVIS W from 02/03/2019 FINDINGS: Liver: In the right lobe of the liver there is a 3.7 x 1.8 cm lobulated mass present. This correspon ds to the CT abnormality. It is hyperintense on T2 and hypointense on T1. Following contrast admini stration there is nodular enhancement which is isointense on the arterial images. There is progressi ve opacification of the lesion on subsequent images. By 5 minutes, there is complete opacification o f the lesion which remains isointense to the aorta. The findings are most consistent with a hepatic hemangioma. There are also several tiny (less than 4 mm) T2 hyperintense lesions scattered throughou t the liver. These do not show enhancement and are most consistent with cysts. No other hepatic mas ses are present. Pancreas: Unremarkable. Gallbladder and Bile Ducts: Unremarkable. Adrenals: Unremarkable. Kidneys: There is a 4 mm T2 hyperintense nonenhancing lesion in the midpole of the left kidney consis tent with a cyst. The kidneys are otherwise unremarkable. Spleen: Unremarkable. Aorta: Unremarkable. Soft Tissues: Unremarkable. Bone: Unremarkable. Lymph Nodes: Unremarkable. IMPRESSION: 3.7 x 1.8 cm right hepatic mass most consistent with a hepatic hemangioma. DATA REPOSITORY:
[2021-01-28] MEDS: Gadoterate meglumine 20 ML VIAL 14 ML IVP (08:22)
== END 2021-01-28 01:08 ==
PROVIDERS: PCP Internal Medicine; Visit Provider Nurse Practitioner Family
DX: K76.9 Liver disease, unspecified (principal)
CPT/HCPCS: 74183

== ENCOUNTER 2022-07-22 12:37 | Outpatient (REF) | payer BC, SELFPAY ==
[2022-07-22 21:45] LABS: ALT 37 U/L (14-59); AST 19 U/L (15-37); Albumin 4.2 g/dL (3.4-5.0); Alkaline Phosphatase 86 U/L (46-116); Anion Gap 8.3 mmol/L (3-11); BUN 16 mg/dL (7-18); Bilirubin, Total 1.1 mg/dL (0.2-1.0); CO2 28.7 mmol/L (21.0-32.0); CREATININE 0.9 mg/dL (0.55-1.02); Calcium 9.5 mg/dL (8.5-10.1); Calculated LDL 92 mg/dL (<100); Chloride 104 mmol/L (98-107); Cholesterol 170 mg/dL (<200); Estimated GFR 72.28 (mL/min/1.73m2); Glucose 96 mg/dL (74-106); HDL Cholesterol 59 mg/dL (40-60); Potassium 4.1 mmol/L (3.5-5.1); Sodium 141 mmol/L (136-145); Total Protein 7.7 g/dL (6.4-8.2); Triglyceride 95 mg/dL (<150)
== END 2022-07-22 12:38 | disposition home or self-care (01) ==
LOC: NCHCN 12:37
PROVIDERS: PCP Internal Medicine; Visit Provider Nurse Practitioner Family
DX: E78.5 Hyperlipidemia, unspecified (principal)
CPT/HCPCS: 80053; 80061

== ENCOUNTER 2024-10-12 14:55 | Outpatient (REF) | payer MEDICARE, SELFPAY ==
[2024-10-12 19:32] LABS: ALT 42 U/L (14-59); AST 21 U/L (15-37); Albumin 4.1 g/dL (3.4-5.0); Alkaline Phosphatase 78 U/L (46-116); Anion Gap 9.3 mmol/L (3-11); BUN 17 mg/dL (7-18); Bilirubin, Total 0.7 mg/dL (0.2-1.0); CO2 28.7 mmol/L (21.0-32.0); Calcium 9.1 mg/dL (8.5-10.1); Calculated LDL 152 mg/dL (<100); Chloride 104 mmol/L (98-107); Cholesterol 221 mg/dL (<200); Estimated GFR 95.92 (mL/min/1.73m2); Glucose 103 mg/dL (74-106); HDL Cholesterol 47 mg/dL (>or=50); Potassium 4.0 mmol/L (3.5-5.1); Sodium 142 mmol/L (136-145); Total Protein 7.1 g/dL (6.4-8.2); Triglyceride 110 mg/dL (<150)
== END 2024-10-12 14:56 | disposition home or self-care (01) ==
LOC: NCHCN 14:55
PROVIDERS: PCP Internal Medicine; Visit Provider Nurse Practitioner Family
DX: E78.5 Hyperlipidemia, unspecified (principal)
CPT/HCPCS: 80053; 80061